=== PATIENT | male | born 1935 | race Caucasian/White ===

== ENCOUNTER 2021-08-08 07:16 | Outpatient (CLI) | payer MEDICARE, BC | END 2021-08-08 07:17 | disposition home or self-care (01) | LOC: CSHULT 07:16 | PROVIDERS: ATTEND Urology | DX: C64.1 Malignant neoplasm of right kidney, except renal pelvis (principal); N28.1 Cyst of kidney, acquired | CPT/HCPCS: 76770 ==

== ENCOUNTER 2022-01-12 00:53 | Emergency (ER) | payer MEDICARE, BC | END 2022-01-12 01:36 | disposition home or self-care (01) | LOC: CSHERS 00:53 | DX: B02.9 Zoster without complications (principal); R07.89 Other chest pain | CPT/HCPCS: 93005 ==

== ENCOUNTER 2023-05-07 07:45 | Outpatient (CLI) | payer MEDICARE, BC | END 2023-05-07 07:46 | disposition home or self-care (01) | LOC: CSHULT 07:45 | PROVIDERS: ATTEND Internal Medicine | DX: N28.1 Cyst of kidney, acquired (principal); Z90.5 Acquired absence of kidney; Z85.528 Personal history of other malignant neoplasm of kidney; N20.0 Calculus of kidney | CPT/HCPCS: 76770 ==